=== PATIENT | female | born 1995 | race Caucasian/White ===

== ENCOUNTER 2016-07-25 16:01 | Emergency (ER) | payer MEDICAID ==
[2016-07-25 16:06] VITALS: BP 130/69; BMI 25.8
--- NOTE | 2016-07-25 16:57 | DR.GENAD ---
HPI - Complaint/Symptoms Chief Complaint Doctors Comments: Patient states that she is about ten weeks . LMP 4/ She denies spotting. Chief Complaint:: PT FOUND OUT SHE WAS YESTERDAY AND HAS BEEN HAVING SHARP PAINS - Mode of Arrival Mode of Arrival: Ambulatory - Timing Onset of Chief Complaint: 07/24/16 PMH - PMH Past Medical History: No Past Surgical History: Yes Surgical History: Tonsillectomy Past Surgical History Comment: WISDOM TEETH. - Family History History of Family Medical Conditions: Yes Family Medical History: Diabetes Mellitus, Cancer, Heart Failure, Hypertension - Social History Does patient currently use any type of tobacco product: No Have you used tobacco products in the last 12 months: No Type of Tobacco Use: None Does any household member use tobacco: No Alcohol Use: None Do you use any recreational Drugs:: No Lives With: Family Lives Where: Home - infectious screening In the last 2 months have you had wt loss of >10#?: NO Have you had fever, night sweats or hemotysis?: No Have you traveled outside the country in the last 6 months?: No Isolation: Standard ROS - Review of Systems Eyes: No Symptoms Reported ENTM: No Symptoms Reported Respiratoy: No Symptoms Reported Cardiovascular: No Symptoms Reported Gastrointestinal/Abdominal: No Symptoms Reported Genitourinary: No Symptoms Reported Neurological: No Symptoms Reported Musculoskeletal: No Symptoms Reported Integumentary: No Symptoms Reported Hematologic/Lymphatic: No Symptoms Reported Endocrine: No Symptoms Reported Psychiatric: No Symptoms Reported All Other Systems: Reviewed and Negative PE - Vital Signs Vitals: Temperature 97.3 F Pulse Rate 94 Respiratory Rate 18 Blood Pressure 130/69 O2 Sat by Pulse Oximetry 100 - General Limitations: No Limitations General Appearance: Alert, In No Apparent Distress, Appears Intoxicated - Head Head Exam: Normal Inspection, Atraumatic - Eyes Eye exam: Normal Appearance, PERRL, EOMI - ENT ENT Exam: Normal Exam External Ear Exam: Normal External Inspection TM/Canal Exam: Bilateral Normal Nose Exam: Normal Nose Exam Mouth Exam: Normal Inspection Throat Exam: Normal Inspection - Neck Neck Exam: Normal Inspection - Chest Chest Inspection: Normal Inspection - Respiratory Respiratory Exam: Normal Lung Sounds Bilat Respiratory Exam: Bilateral Clear to Auscultation - Cardiovascular Cardiovascular Exam: Regular Rate, Normal Rhythm - Abdominal Exam Abdominal Exam: Normal Inspection Abdominal Tenderness: negative: RUQ, RLQ, LUQ, LLQ, Epigastrium, Suprapubic, Diffuse, Mild, Moderate, Severe, Other - Extremities Extremities Exam: Normal Inspection, Full ROM - Neurologic Neurological Exam: Alert, Oriented X3, CN II-XII Intact - Psychiatric Psychiatric Exam: Normal Affect, Normal Mood - Skin Skin Exam: Warm, Dry, Intact ROR - Labs Reviewed Laboratory Results Reviewed?: Yes (Quant 154; Qual >10) Laboratory: HCG, Qual Positive >10 mIU/mL 07/25/16 17:00 HCG, Quant 154 mIU/mL (0-6) H 07/25/16 17:00 - XRAY XRAY Interpreted by: Radiologist (The uterus is normal in size for gestation. The uterus measures [id number]. No hypoechoic uterine mass lesions are appreciated in the patient. Admittedly, the endometrial stripe is thickened which wouyld bi in keeping with a early . No definite gestational sac is seen in the uterus., but his could simply be keeping with an early . No definite gestational sac is seen in the uterus, but his could be secondary to an early (as the quanitative beta HCTG alevel was not knownat the time of my interpretation, unfortunately. Because these findings could relfect a normal or a blighted ovum,correlation with serial OB ultrasound followup and serial beta HCG levels will be needed. A corpus luteal cyst is suggested in the right ovary. The right ovary itself measures [id number]. The left ovary is unremarkable, measuring [id number]. There is trace free cul=-de-sac fluid observed.) - Diagnosis Discharge Problem: Qualifiers: Weeks of gestation: less than 8 weeks Qualified Code(s): Z3A.01 - Less than 8 weeks gestation of - Discharge Plan Condition: Stable - Follow ups/Referrals Follow ups/Referrals: NFD,None [Primary Care Provider] - 3 days - Instructions
[2016-07-25 17:20] LABS: SERUM PREGNANCY TEST, QUAL POSITIVE >10 mIU/mL
--- NOTE | 2016-07-25 18:47 | US ---
History: Abdominal pain. Exam: Transvaginal pelvic ultrasound Comparison: None. Technique: Multiple grayscale and color flow Doppler images of the pelvis were obtained. Findings: The uterus is normal in size for gestation. The uterus measures 52 x 24 x 31 mm. No hypoechoic uteri ne mass lesions are appreciated in this patient. Admittedly, the endometrial stripe is thickened whi ch would be in keeping with an early . No definite gestational sac is seen in the uterus, b ut this could simply be secondary to an early (as the quantitative beta HCG level was not known at the time of my interpretation, unfortunately). Because these findings could reflect a maureen l or a blighted ovum, correlation with serial OB ultrasound followup and serial beta HCG l evels will be needed. A corpus luteal cyst is suggested in the right ovary. The right ovary itself m easures 36 x 26 x 27 mm. The left ovary is unremarkable, measuring 36 x 23 x 21 mm. There is trace f ree cul-de-sac fluid observed. IMPRESSION: The uterus is normal in size for gestation. The uterus measures 52 x 24 x 31 mm. No hypo echoic uterine mass lesions are appreciated in this patient. Admittedly, the endometrial stripe is t hickened which would be in keeping with an early . No definite gestational sac is seen in t he uterus, but this could simply be secondary to an early (as the quantitative beta HCG le ezra was not known at the time of my interpretation, unfortunately). Because these findings could ref lect a normal or a blighted ovum, correlation with serial OB ultrasound followup and seria l beta HCG levels will be needed. A corpus luteal cyst is suggested in the right ovary. The right ov patricia itself measures 36 x 26 x 27 mm. The left ovary is unremarkable, measuring 36 x 23 x 21 mm. Ther e is trace free cul-de-sac fluid observed. Reported By:
== END 2016-07-25 19:27 | disposition home or self-care (01) ==
LOC: ER 16:12
DX: R10.84 Generalized abdominal pain (principal); Z3A.01 Less than 8 weeks gestation of pregnancy
CPT/HCPCS: 36415; 76830; 84702; 84703; 99282; 99284